=== PATIENT | female | born 1960 | race Asian ===

== ENCOUNTER 2017-06-03 08:37 | Day surgery (SDC) | payer OTHER ==
[~2017-06-03] VITALS: Ht 157.5 cm; Wt 63.2 kg
[~2017-06-03 08:37] MED LIST: AMLO-511 PO; LOSA50TA37 PO; MitoMYcin 0.2 MG/VIAL KIT FOR OPHTHALMIC USE OS ONE; VITAD1000 PO
[2017-06-03] MEDS ORDERED: LIDOCAINE HCL 2%/EPI 1:200,000/PF 10 ML VIAL IM ONE (08:38)
[2017-06-03] MEDS ORDERED: MIDAZOLAM HCL 2 MG/2 ML VIAL IVP ONE (08:38)
[2017-06-03] MEDS ORDERED: BUPIVACAINE HCL/PF 0.75% 10 ML VIAL INJ ONE (08:38)
[2017-06-03] MEDS ORDERED: FentaNYL CITRATE-PF 100 MCG/2 ML VIAL IVP ONE (08:38)
[2017-06-03] MEDS ORDERED: TETRACAINE HCL VISCOUS 0.5% 5 ML OPHTHALMIC SOLUTION OU ONE (08:38)
[2017-06-03] MEDS ORDERED: RINGERS SOLUTION,LACTATED 500 ML IV ONE ×2 (09:44→10:00)
[2017-06-03] MEDS ORDERED: DICLOFENAC SODIUM 0.1% 2.5 ML OPHTHALMIC SOLUTION ONE (09:45)
[2017-06-03] MEDS ORDERED: MOXIFLOXACIN HCL 0.5% 3 ML OPHTHALMIC SOLUTION ONE (09:46)
[2017-06-03] MEDS ORDERED: MOXIFLOXACIN HCL 0.5% 3 ML OPHTHALMIC SOLUTION OS ONE (10:00)
[2017-06-03] MEDS ORDERED: DICLOFENAC SODIUM 0.1% 2.5 ML OPHTHALMIC SOLUTION OS ONE ×2 (10:00→10:15)
[2017-06-03] MEDS ORDERED: ACETAMINOPHEN 1000 MG/ISO-OSM 100 ML IV ONE (13:30)
== END 2017-06-03 14:30 | disposition home or self-care (01) ==
LOC: SURGERY 08:37
PROVIDERS: ATTEND Specialist
DX: E11.39 Type 2 diabetes mellitus with other diabetic ophthalmic complication (principal); H11.052 Peripheral pterygium, progressive, left eye; I10 Essential (primary) hypertension; G43.909 Migraine, unspecified, not intractable, without status migrainosus; E55.9 Vitamin D deficiency, unspecified; F32.9 Major depressive disorder, single episode, unspecified; Z88.8 Allergy status to other drugs, medicaments and biological substances; Z98.51 Tubal ligation status; Z87.442 Personal history of urinary calculi; Z98.890 Other specified postprocedural states
CPT/HCPCS: 65426; 88304; 93005; C1768; J0131; J2250; J3010; J3490; J7120